=== PATIENT | male | born 1965 | race Caucasian/White ===

== ENCOUNTER 2016-09-13 14:01 | Emergency (ER) | payer OTHER ==
[~2016-09-13] VITALS: Ht 172.7 cm; Wt 86.4 kg
[~2016-09-13 14:01] MED LIST: AMIO200T PO; AMIO400T4 PO; LOV80 SUBQ; MAGN64TA7 PO; METO50TA3 PO; OMEP20TA86 PO; WARF1TAB PO
[2016-09-13 14:05] VITALS: BP 161/100; PULSE 80; RESP 18; O2SAT 97
--- NOTE | 2016-09-13 14:46 | ED.REPORT ---
HPI-General Illness Date of Service Sep 13, 2016 ED Provider: Dr. Simmons Pt is a 51 y/o male w/ a hx of paroxysmal A-fib s/p ablation, HTN, presenting to the ED c/o intermittent episodes of palpitations onset 1 week ago. The patient believes that he has been going in and out of atrial fibrillation for 1 week which has caused him dizziness, nausea, SOB, fatigue. He is taking Metoprolol 50 mg BID. He was on Warfarin at one point but is no longer anticoagulated. His last episode occurred at 13:30 and lasted 30 minutes, this was his 3rd episode today. Pt denies CP, vomiting, fever, chills, cough. Appointment Clerk: Dr. Keith Verde. He has an appointment to see Dr. Ramirez on October 19. Nursing Notes Stated Complaint: POSSIBLE A-FIB Chief Complaint: Dysrhythmia/Cardiac Nursing Notes Reviewed: Yes Allergies: Coded Allergies: Sulfa (Sulfonamide Antibiotics) (Verified Allergy, Unknown, 03/05/14) Scheduled Amiodarone (Amiodarone) 200 Mg Tablet 200 MG PO DAILY After completing the 14 days on 400mg tablets, please take 1 tablet of 200mg once daily. Amiodarone (Amiodarone) 400 Mg Tablet 400 MG PO DIRECTED 1 tablet twice daily for 7 days, then 1 tablet once daily for 7 days. Enoxaparin (Lovenox) 80 Mg/0.8 Ml Syringe 80 MG SUBQ Q12 Magnesium Chloride (Mag64) 64 Mg Tablet.er 64 MG PO DAILY Metoprolol Tartrate (Metoprolol Tartrate) 50 Mg Tablet 50 MG PO BID Please take 1 tablet twice a day Metoprolol Tartrate (Metoprolol Tartrate) 75 Mg Tablet 75 MG PO BID Omeprazole (Omeprazole) 20 Mg Tablet. 20 MG PO DAILY Warfarin Sodium (Coumadin) 1 Mg Tablet 1 MG PO DAILY@17 General Time Seen by MD: 14:45 Chief Complaint Other (Palpitations) Hx Obtained From: Patient Arrived By: Walk-in Sudden in Onset?: No Onset Occurred: 1 week ago Symptom Duration: Intermittent Severity: Current: No pain currently Severity: Maximum: No pain Recent Healthcare: Previous diagnosis, Previous surgery, Prior workup Similar Sx Previous: Yes Past Medical History Past Medical History Hypertension Paroxysmal atrial fibrillation s/p ablation Hx of SVT Past Surgical History Cardiac ablation at [facility] 09/28/2015 Family History noncontributory Smoking History Never Smoker Social History Alcohol Use: Denies alcohol use Drug Use: THC Other Social History: Good social support, Local resident Ambulatory Status Independent Review of Systems Full Review of Systems Constitutional: Reports: Fatigue, Denies: Chills, Fever Respiratory: Reports: Shortness of breath, Denies: Non-productive cough Cardiovascular: Reports: Palpitations, Denies: Chest pain GI: Reports: Nausea, Denies: Abdominal pain, Diarrhea, Vomiting Neurologic: Reports: Dizziness, Denies: Focal weakness, Numbness Complete sys rev & neg: except as marked. Physical Exam Vital Signs Vital Signs Date Time Temp Pulse Resp B/P Pulse Ox O2 Delivery O2 Flow Rate FiO2 09/13/16 16:30 70 14 143/91 95 Room Air 09/13/16 14:05 36.5 80 18 161/100 97 Room Air Initial VS: Reviewed, Vital signs abnormal Head / Eyes: Atraumatic, Normocephalic, PERRL ENT: Mucous membranes moist, Conjunctiva normal, No scleral icterus Neck: Supple, Full range of motion Respiratory: Breath sounds normal, Clear to auscultation, No respiratory distress Abdomen / GI: Soft, Non-tender Extremities: Vascular intact, Neuro intact, No swelling, No tenderness Skin: Warm, Dry, No cyanosis Neurologic: Alert, Oriented, Nonfocal Psychiatric: Mood/affect normal, Behavior normal, Normal thought content General/Constitutional: Awake, Alert, No acute distress, Well appearing, Cooperative, Not toxic appearing Cardiovascular: Heart rate NL, Regular rhythm, Heart sounds NL, No gallop, No murmurs, No rubs, Cap refill not delayed, Peripheral circulation NL Interpretation & Diagnostics Lab Results Interpretation Result Diagram: 09/13/16 1450 09/13/16 1450 Test 09/13/16 14:50 White Blood Count 6.6th/mm3 (3.8-10.1) Red Blood Count 4.95mil/mm3 (4.40-5.80) Hemoglobin 15.7g/dL (13.8-17.2) Hematocrit 43.3% (41.0-50.0) Mean Corpuscular Volume 87.5fL (81-100) Mean Corpuscular Hemoglobin 31.7pg (27.0-35.0) Mean Corpuscular Hemoglobin Concent 36.3% (32.0-37.0) Red Cell Distribution Width 12.7% (12.3-15.4) Platelet Count 215bil/L (150-400) Neutrophils (%) (Auto) 63.1% (40-74) Lymphocytes (%) (Auto) 21.7% (14-46) Monocytes (%) (Auto) 14.1% (4-12) Eosinophils (%) (Auto) 0.6% (0-5) Basophils (%) (Auto) 0.3% (0-3) Sodium Level 138mEq/L (134-144) Potassium Level 4.1mEq/L (3.5-5.2) Chloride Level 103mEq/L (97-108) Carbon Dioxide Level 22mmol/L (18-29) Blood Urea Nitrogen 18mg/dL (6-24) Creatinine 0.80mg/dL (0.76-1.27) Estimat Glomerular Filtration Rate 108mL/min (>59) Glucose Level 112mg/dL (60-99) Calcium Level 9.0mg/dL (8.5-10.1) Magnesium Level 2.1mg/dL (1.6-2.6) Total Bilirubin 0.8mg/dL (0.0-1.2) Aspartate Amino Transf (AST/SGOT) 23U/L (0-50) Alanine Aminotransferase (ALT/SGPT) 24U/L (0-44) Alkaline Phosphatase 66U/L (25-150) Total Protein 7.3g/dL (6.4-8.4) Albumin 4.6g/dL (3.4-5.0) Thyroid Stimulating Hormone (TSH) 1.730uIU/mL (0.450-4.500) Hold Mariano Top Tube Received (Received) ECG Interpretation ECG Interpretation: Sinus rhythm rate 76 Normal early repol pattern Time: 14:51 Interpreted by: ED physician Normal ECG Interpretation: No acute ischemic changes X-Ray Chest Interpretation Chest Xray Interpretation: IMPRESSION: No acute cardiopulmonary disease. Dictated by: Adolfo Blankenship RRA Interpreted: Vangie Wren MD on 09/13/2016 at 16:16 Transcribed by: GREGORIA on 09/13/2016 at 16:17 View: Portable, AP & lat Interpretation / Wet Read by: Interpret - Radiologist Re-Eval/Medical Decision Med Decision/Clinical Course Likely paroxysmal A. fib by clinical history ;Con's score of 1, will increase metoprolol and recommend close follow-up with cardiology. On-call cardiology is consulted who agrees with plan. Return precautions given. Time of Eval: 15:54 Re-Evaluation/Progress Note: Discussed labs and imaging. Will consult cardiology to possibly have his appointment moved up. Consultation : Referral / Consult Name: Danielito Ramirez MD Consulted With: Cardiology Call Returned at: 16:57 Chief Recordist: Agrees with eval, Agrees with plan Note: Agrees with plan for medication increase. Recommends for him to call the cardiology office and say that he was in the ED and that [facility] requested he be added onto the schedule next week. Counseled Regarding: Diagnosis, Lab results, Need for follow-up, When/why to return to ED Discharge & Departure Primary Impression: Atrial fibrillation Atrial fibrillation type: paroxysmal Qualified Code: I48.0 - Paroxysmal atrial fibrillation Disposition: Home Discharge Condition All VS Reviewed: Yes Condition: Stable Additional Instructions: Increase your metoprolol to 75 mg twice daily. Continue taking full dose aspirin daily. Call the cardiology office tomorrow for close follow-up. I spoke directly with Dr. Ramierz, who recommended calling the office and telling the office staff to help set you up with an appointment next week. Return to the ER if you develop persistent atrial fibrillation that will not resolve, severe crushing chest discomfort, or any other concerns. Referrals: Ying Carver MD (PCP) Danielito Ramirez MD Attestation Portions of this note were transcribed by Alex Bang. I, Dr. Simmons personally performed the history, physical exam and medical decision-making; I reviewed and confirmed the accuracy of the information in the transcribed note. Signed by Jigar Henderson, 09/13/16 - [id number] copies to: Ying Carver MD; Danielito Ramirez MD, Timothy S DO Sep 13, 2016 14:45 ALEX BANG Sep 13, 2016 14:53
[2016-09-13 15:14] LABS: BASOPHILS % (AUTO) 0.3 % (0-3); NEUTROPHILS % (AUTO) 63.1 % (40-74)
[2016-09-13 15:17] LABS: EOSINOPHILS % (AUTO) 0.6 % (0-5); MONOCYTES % (AUTO) 14.1 % (4-12); Mean Corpuscular Hemoglobin 31.7 pg (27.0-35.0); Mean Corpuscular Volume 87.5 fL (81-100); Platelet Count 215 bil/L (150-400)
[2016-09-13 15:30] LABS: Magnesium 2.1 mg/dL (1.6-2.6)
--- NOTE | 2016-09-13 16:17 | DRSVH ---
PROCEDURE: X-RAY CHEST, TWO VIEWS ([id number]) INDICATIONS: intermittent afib TECHNIQUE: 2 views of the chest were acquired. COMPARISON: None. FINDINGS: Surgical changes and devices: None. Lungs and pleura: No pleural effusions or pneumothorax. Lungs are clear. Mediastinum: Mediastinal contours are normal. Heart size is normal. Bones and chest wall: No suspicious bony abnormalities. Soft tissues appear unremarkable. IMPRESSION: No acute cardiopulmonary disease. Dictated by: Adolfo Blankenship [facility] Interpreted: Vangie Wren MD on 09/13/2016 at 16:16 Transcribed by: GREGORIA on 09/13/2016 at 16:17 Approved by: Vangie Wren MD, PhD on 09/13/2016 at 17:15
[2016-09-13 16:30] VITALS: BP 143/91; PULSE 70; RESP 14; O2SAT 95
[2016-09-13] MEDS ORDERED: METO75TA PO (17:17)
[2016-09-13 17:34] VITALS: BP 131/68; PULSE 72; RESP 17; O2SAT 98
== END 2016-09-13 17:34 | disposition home or self-care (01) ==
LOC: SED 14:01
DX: I48.0 Paroxysmal atrial fibrillation (principal); I10 Essential (primary) hypertension; Z98.890 Other specified postprocedural states; Z79.01 Long term (current) use of anticoagulants; Z88.2 Allergy status to sulfonamides